=== PATIENT | female | born 1995 | race Caucasian/White ===

== ENCOUNTER 2017-04-19 13:41 | Emergency (ER) | payer BC ==
--- NOTE | 2017-04-19 14:37 | UC ---
Lower Extremity/Ankle HPI - HPI Summary HPI Summary: 21 y/o female presents to the urgent care c/o RT lateral side foot pain since Monday04/17/2017 when she woke up. Pt reports she has been running in the [place] lately. Pain is 8/10 sharp and worse with walking. She has not taking anything to alleviate pain. Pt denies numbness or tingling over the toes , calf pain, SOB, chest pain, N/V/D . - History of Current Complaint Chief Complaint: UCLowerExtremity Stated Complaint: RIGHT FOOT COMPLAINT Time Seen by Provider: 04/19/17 14:34 Hx Obtained From: Patient Hx Last Menstrual Period: 03/27/17 ?: No Onset/Duration: Gradual Onset, Lasting Days - 2 days, Still Present Severity Initially: Mild Severity Currently: Moderate Pain Intensity: 8 - upon walking Pain Scale Used: 0-10 Numeric Aggravating Factor(s): Ambulation Alleviating Factor(s): Rest Able to Bear Weight: Yes - Risk Factors Gout Risk Factors: Negative DVT Risk Factors: Negative Septic Arthritis Risk Factor: Negative - Allergies/Home Medications Allergies/Adverse Reactions: Allergies Allergy/AdvReac Type Severity Reaction Status Date / Time No Known Allergies Allergy Verified 04/19/17 14:19 Home Medications: Home Medications Oral Contraceptive 1 tab PO DAILY 04/19/17 [History] PMH/Surg Hx/FS Hx/Imm Hx Previously Healthy: Yes - Pt denies PMHX - Surgical History Surgical History: None - Family History Known Family History: Positive: Hypertension, Diabetes - Social History Occupation: Student Lives: With Family Alcohol Use: None Substance Use Type: None Smoking Status (MU): Never Smoked Tobacco - Immunization History Most Recent Influenza Vaccination: no Vaccination Up to Date: Yes Review of Systems Constitutional: Negative Skin: Negative Eyes: Negative ENT: Negative Respiratory: Negative Cardiovascular: Negative Gastrointestinal: Negative Genitourinary: Negative Motor: Negative Neurovascular: Negative Musculoskeletal: Other: - RT lateral side foot pain Neurological: Negative Psychological: Negative Is Patient Immunocompromised?: No All Other Systems Reviewed And Are Negative: Yes Physical Exam Triage Information Reviewed: Yes Vital Signs: Initial Vital Signs Temp 98.2 F 04/19/17 14:14 Pulse 69 04/19/17 14:14 Resp 14 04/19/17 14:14 Pulse Ox 99 04/19/17 14:14 - Additional Comments Vital Signs Reviewed: Yes General : well developed, well nourished female w/o any apparent distress Eyes: Positive: Conjunctiva Clear - PERRLA, EOMI ENT: Positive: Normal ENT inspection, Hearing grossly normal, Pharynx normal, TMs normal Neck: Positive: Supple, Nontender, No Lymphadenopathy Respiratory: Positive: Chest non-tender, Lungs clear, Normal breath sounds, No respiratory distress Cardiovascular: Positive: RRR, No Murmur, Pulses Normal Abdomen Description: Positive: Nontender, No Organomegaly, Soft. Negative: CVA Tenderness (R), CVA Tenderness (L) Bowel Sounds: Positive: Present Musculoskeletal: Positive: Strength Intact, ROM Intact, No Edema, Other: - Foot/ Toes: Pt is able to bear weight but ambulate with mild limping. RT foot :No surface trauma, ecchymosis, erythema, lesions, ulcers or break in skin integrity. The R foot is without obvious asymmetry or deformity when compared to the L foot. Nobony step-off, No tenderness to palpation over toes, point tenderness over the dorsal side of mid foot and base of the 4th and 5th metatarsal and sole at the same level, no tenderness of hindfoot, Decrease plantar/dorsiflexion, inversion/eversion due to pain. Distal motor and neurovascular status are intact. Neurological Exam: Normal Psychological Exam: Normal Skin Exam: Normal Lower Extremity Course/Dx - Course Course Of Treatment: 21 y/o female presents to the urgent care c/o RT lateral side foot pain since Monday04/17/2017 when she woke up. Pt reports she has been running in the [place] lately. Pain is 8/10 sharp and worse with walking. She has not taking anything to alleviate pain. Pt denies numbness or tingling over the toes, calf pain, SOB, chest pain, N/V/D. Hx obtained. RT foot X-ray ordered, Impression: No fractured observed, incidental finding of foreign body at the lateral plantar aspect of forefoot. Pt with possible Tendonitis. PT' s foot immobilized with nando Bandage and post-up shoe and given crutches. Advised no weight bearing and F/u with Orthopedic in 3 days if symptoms do not improve for further management. Pt understood and agreed wit D/C instructions. Left the clinic with the help of the crutches. - Differential Dx/Diagnosis Differential Diagnosis/HQI/PQRI: Contusion, Fracture (Closed), Sprain, Strain, Tendonitis Provider Diagnoses: 1- RT foot pain - Physician Notifications Discussed Patient Care With: Tramaine Bone Discharge - Discharge Plan Condition: Stable Disposition: HOME Prescriptions: Naproxen TAB* [Naprosyn 250 mg TAB*] 500 mg PO Q8H PRN #30 tab PRN Reason: Pain Patient Education Materials: Foot Sprain (ED) Referrals: [facility] [Outside] Emma Saldivar MD [Medical Doctor] - 3 Days Additional Instructions: 1-Please take medications as directed to alleviate pain and swelling. 2-Please apply ice, keep your foot immobilized with the Nando bandage and use the crutches to avoid weight bearing. Avoid strenuous exercise or standing for long periods of time 3- Please f/u with your Orthopedic in 3 days if not improvement of symptoms for further evaluation and treatment. 4- If you develop fever, severe pain with swelling please go immediately to the ER for further management
--- NOTE | 2017-04-19 16:13 | RAD ---
Indication: Lateral RIGHT foot pain without reported injury. Exacerbated by pressure on the heel. Comparison: No relevant prior exams available on the [facility] PACS for comparison. Technique: AP, lateral, and oblique views RIGHT foot. Report: Negative for fracture, radiographic stigmata of stress reaction, or articular malalignment. Normal variant os tibialis externum accessory ossicle. Punctate opaque foreign body along the dermal tissue plane at the lateral plantar aspect of the forefoot may be on the surface of the skin or embedded within the dermal tissue plane. Unremarkable soft tissue contours. IMPRESSION: 1. Negative for fracture. 2. Punctate opaque foreign body along the dermal tissue plane at the lateral plantar aspect of the forefoot may be on the surface of the skin or embedded within the dermal tissue plane. Correlate with clinical assessment.
== END 2017-04-19 16:24 | disposition home or self-care (01) ==
LOC: UCCORT 13:41
DX: M79.671 Pain in right foot (principal); Z32.02 Encounter for pregnancy test, result negative
CPT/HCPCS: 84702; 99203; G0463

== ENCOUNTER 2018-04-07 12:30 | Emergency (ER) | payer BC ==
[2018-04-07 13:04] VITALS: BP 125/74
--- NOTE | 2018-04-07 13:30 | UC ---
Lower Extremity/Ankle HPI - HPI Summary HPI Summary: 4 day history of progressive foot pain. PT major with bilateral pes planus, had similar problem last year from treadmill. Settled without seeing ortho, chart reviewed from last year. 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 Requests a boot so that she does not need crutches. Past right ankle strain. - History of Current Complaint Chief Complaint: UCLowerExtremity Stated Complaint: RIGHT FOOT PAIN Time Seen by Provider: 04/07/18 13:15 Hx Obtained From: Patient Hx Last Menstrual Period: 03/18/18 Onset/Duration: Gradual Onset, Lasting Days - 4 Severity Initially: Moderate Severity Currently: Moderate Pain Intensity: 6 Aggravating Factor(s): Standing, Ambulation Able to Bear Weight: Yes - limping - Risk Factors Gout Risk Factors: Negative DVT Risk Factors: Negative - Allergies/Home Medications Allergies/Adverse Reactions: Allergies Allergy/AdvReac Type Severity Reaction Status Date / Time No Known Allergies Allergy Verified 04/07/18 12:58 Home Medications: Home Medications Norethindrone AC-Eth Estradiol [Microgestin 21 1.5-30 Tab] 1 each PO DAILY 04/07 [History Confirmed 04/07/18] PMH/Surg Hx/FS Hx/Imm Hx Previously Healthy: Yes - Surgical History Surgical History: None - Family History Known Family History: Positive: None - parents healthy, mom has structural foot problems - Social History Alcohol Use: None Substance Use Type: None Smoking Status (MU): Never Smoked Tobacco - Immunization History Most Recent Influenza Vaccination: no Vaccination Up to Date: Yes Review of Systems Constitutional: Negative Skin: Negative Eyes: Negative ENT: Nasal Discharge - recent URI Respiratory: Negative Cardiovascular: Negative Gastrointestinal: Negative Genitourinary: Negative Motor: Negative Neurovascular: Negative Musculoskeletal: Arthralgia Neurological: Negative Psychological: Negative Is Patient Immunocompromised?: No All Other Systems Reviewed And Are Negative: Yes Physical Exam Triage Information Reviewed: Yes Appearance: Well-Appearing, Pain Distress - mild Vital Signs: Initial Vital Signs Temp 97.8 F 04/07/18 12:59 Pulse 78 04/07/18 12:59 Resp 14 04/07/18 12:59 BP 125/74 04/07/18 12:59 Pulse Ox 97 04/07/18 12:59 Respiratory: Positive: Lungs clear, Normal breath sounds Cardiovascular: Positive: RRR, No Murmur Musculoskeletal Exam: Other - tender to palpation medial border of Achilles tendon, along posterior tibial tendon. Very mild diffuse swelling of the forefoot, no erythema. Musculoskeletal: Positive: ROM Intact - ankle rom full Skin Exam: Normal Lower Extremity Course/Dx - Course Course Of Treatment: foot immobilization requested - Differential Dx/Diagnosis Differential Diagnosis/HQI/PQRI: Strain, Tendonitis Provider Diagnoses: tendonitis right foot Discharge - Sign-Out/Discharge Documenting (check all that apply): Patient Departure All imaging exams completed and their final reports reviewed: No Studies - Discharge Plan Condition: Stable Disposition: HOME Patient Education Materials: Tendinitis (ED) Referrals: No Primary Care Phys,NOPCP [Primary Care Provider] - Additional Instructions: Use the Cam walker for foot support while walking, removing it for overnight and while at rest. Use ibuprofen 600mg three times daily with food for 5 to 7 days to help to settle inflammation. Follow up with your shipping lead person and system trainer as discussed. - Billing Disposition and Condition Condition: STABLE Disposition: Home
== END 2018-04-07 14:01 | disposition home or self-care (01) ==
LOC: UCCORT 12:30
DX: M77.51 Other enthesopathy of right foot and ankle (principal)
CPT/HCPCS: 99212; G0463